=== PATIENT | male | born 1955 | race Two or more races ===

== ENCOUNTER 2017-11-20 14:32 | Emergency (ER) | payer SELFPAY ==
[2017-11-20] MEDS: IBUPROFEN 800 MG TABLET. PO ×2 (15:21)
[2017-11-20 15:31] LABS: INFLUENZA A PATIENT POSITIVE (NEGATIVE); INFLUENZA B PATIENT NEGATIVE (NEGATIVE); OBC FLU VALID
== END 2017-11-20 15:42 | disposition home or self-care (01) ==
LOC: ER 14:32
DX: J09.X2 Influenza due to identified novel influenza A virus with other respiratory manifestations (principal)
CPT/HCPCS: 87804; 87804-59; 99284

== ENCOUNTER 2021-09-27 13:27 | Emergency (ER) | payer MEDICAID ==
[~2021-09-27] VITALS: Ht 167.6 cm; Wt 65.9 kg
[~2021-09-27 13:27] MED LIST: FOLI0.8T21 PO; OSEL75CA PO; Pantoprazole PO; THIA100T22 PO
--- NOTE | 2021-09-27 15:38 | PHYS DOC ---
Past Medical History Past Medical History: Other Additional Past Medical Histor: ETOH ABUSE Past Surgical History: No Surgical History Smoking Status: Never Smoker Alcohol Use: Heavy Drug Use: None General Adult EDM: Chief Complaint: FLU SYMPTOM HPI: HPI: Patient is a 66-year-old male presenting via POV for Covid symptoms. Patient he reports history of alcohol binge abuse but cessation 6 months ago without any o ther known medical diseases presents with typical Covid symptoms. Reports he has had symptoms for past 6 days, was tested 5 days ago with his daughter and both of them tested positive for rapid test that was performed in the local area. Reports he has had rhinorrhea, postnasal drip, nasal congestion and a dry nonproductive cough, he has had ongoing nausea with occasional abdominal cramping. No fever, syncope, chest pain, shortness of breath, productive cough, ripping or tearing sensation in abdomen, hemoptysis or other known blood loss, no urinary symptoms or diarrhea. States she was unvaccinated against COVID-19 pain. He is otherwise been at his baseline health with no known obvious sick contacts or recent travel Review of Systems: Review of Systems: Fourteen body systems of review of systems have been reviewed. See HPI for pertinent positives and negative responses, other wang all other systems are negative, non-pertinent or non-contributory Heart Score: C/O Chest Pain: No HEART Score for Chest Pain: HEART Score for Chest Pain Response (Comments) Value History Moderately Suspicious 1 ECG Nonspecific Repolarizatio 1 Age >45 - < 65 1 Risk Factors 1 or 2 Risk Factors 1 Troponin < Normal Limit 0 Total 4 Risk Factors: Risk Factors: DM, Current or recent (<one month) smoker, HTN, HLP, family history of CAD, obesity. Risk Scores: Score 0 - 3: 2.5% MACE over next 6 weeks - Discharge Home Score 4 - 6: 20.3% MACE over next 6 weeks - Admit for Clinical Observation Score 7 - 10: 72.7% MACE over next 6 weeks - Early Invasive Strategies Allergies: Allergies: Allergies Coded Allergies Type Severity Reaction Last Updated Verified No Known Drug Allergies 04/05/14 No Physical Exam: PE: Constitutional: Well developed, well nourished, no acute distress, non-toxic appearance. HENT: Normocephalic, atraumatic, bilateral external ears normal, oropharynx moist, no oral exudates, nose normal. Eyes: PERRLA, EOMI, conjunctiva normal, no discharge. Neck: Normal range of motion, no tenderness, supple, no stridor. Cardiovascular: Heart rate regular, sinus rhythm, no murmurs rubs or gallops Lungs & Thorax: Bilateral breath sounds clear to auscultation Abdomen: Bowel sounds normal, soft, no tenderness, no masses, no pulsatile masses. Nonsurgical abdomen, no peritoneal signs Skin: Warm, dry, no erythema, no rash. Back: No tenderness, no CVA tenderness. Extremities: No tenderness, no cyanosis, no clubbing, ROM intact, no edema. Neurologic: Alert and oriented X 3, grossly normal motor & sensory function, no focal deficits noted. Psychologic: Affect normal, judgement normal, mood normal. Current Patient Data: Labs: Laboratory Tests Test 09/27/21 15:52 09/27/21 15:57 09/27/21 16:03 White Blood Count 2.9 x10^3/uL Red Blood Count 3.88 x10^6/uL Hemoglobin 9.5 g/dL Hematocrit 29.6 % Mean Corpuscular Volume 76 fL Mean Corpuscular Hemoglobin 25 pg Mean Corpuscular Hemoglobin Concent 32 g/dL Red Cell Distribution Width 16.6 % Platelet Count 73 x10^3/uL Neutrophils (%) (Auto) 64 % Lymphocytes (%) (Auto) 21 % Monocytes (%) (Auto) 12 % Eosinophils (%) (Auto) 3 % Basophils (%) (Auto) 0 % Neutrophils # (Auto) 1.8 x10^3/uL Lymphocytes # (Auto) 0.6 x10^3/uL Monocytes # (Auto) 0.3 x10^3/uL Eosinophils # (Auto) 0.1 x10^3/uL Basophils # (Auto) 0.0 x10^3/uL Sodium Level 137 mmol/L Potassium Level 3.6 mmol/L Chloride Level 102 mmol/L Carbon Dioxide Level 25 mmol/L Anion Gap 10 Blood Urea Nitrogen 7 mg/dL Creatinine 0.7 mg/dL Estimated GFR (Cockcroft-Gault) 113.5 BUN/Creatinine Ratio 10 Glucose Level 89 mg/dL Calcium Level 7.7 mg/dL Total Bilirubin 1.1 mg/dL Aspartate Amino Transf (AST/SGOT) 76 U/L Alanine Aminotransferase (ALT/SGPT) 36 U/L Alkaline Phosphatase 101 U/L Troponin I High Sensitivity 40 ng/L Total Protein 6.4 g/dL Albumin 2.4 g/dL Albumin/Globulin Ratio 0.6 Ethyl Alcohol Level < 10 mg/dL Influenza Type A Antigen Negative Influenza Type B Antigen Positive SARS-CoV-2 Antigen (Rapid) Positive Urine Collection Type Unknown Urine Color Yellow Urine Clarity Clear Urine pH 6.5 Urine Specific [place] 1.020 Urine Protein Negative mg/dL Urine Glucose (UA) 100 mg/dL Urine Ketones (Stick) Trace mg/dL Urine Blood Negative Urine Nitrite Negative Urine Bilirubin Negative Urine Urobilinogen Dipstick 1.0 mg/dL Urine Leukocyte Esterase Negative Urine RBC Occ /HPF Urine WBC Occ /HPF Urine Bacteria Many /HPF Urine Mucus Slight /LPF Urine Opiates Screen Neg Urine Methadone Screen Neg Urine Barbiturates Neg Urine Phencyclidine Screen Neg Urine Amphetamine/Methamphetamine Neg Urine Benzodiazepines Screen Neg Urine Cocaine Screen Neg Urine Cannabinoids Screen Neg Urine Ethyl Alcohol Neg Current Medications Medications (Trade) Dose Ordered Sig/Ele Route PRN Reason Start Time Stop Time Status Last Admin Dose Admin Azithromycin (Zithromax) 500 mg 1X ONCE PO 09/27/21 17:00 09/27/21 17:01 DC Vital Signs: Vital Signs Date Time Temp Pulse Resp B/P (MAP) Pulse Ox O2 Delivery O2 Flow Rate FiO2 09/27/21 15:17 99.7 90 26 120/65 (83) 98 Room Air 99.7 Vital Signs Date Time Temp Pulse Resp B/P (MAP) Pulse Ox O2 Delivery O2 Flow Rate FiO2 09/27/21 15:17 99.7 90 26 120/65 (83) 98 Room Air 99.7 EKG: EKG: EKG ordered and interpreted by myself 1538 hrs. as sinus rhythm at 90 bpm, unremarkable intervals, no axis deviation, T wave inversion noted in lead III otherwise no acute ischemic findings, no STEMI Radiology/Procedures: Radiology/Procedures: EXAM: Chest, single view. HISTORY: Pain. COMPARISON: 02/21/2018 FINDINGS: A frontal view of the chest is obtained. There is bilateral peripheral predominant interstitial and alveolar infiltrate. This is superimposed on chronic interstitial changes. The heart is normal in size. There is no pneumothorax or pleural effusion. IMPRESSION: Bilateral interstitial and alveolar infiltrate. Follow-up to confirm resolution. Electronically signed by: Bina Smith MD (09/27/2021 4:40 PM) [id number] ////////////////////// Course & Med Decision Making: Course & Med Decision Making ABCs unremarkable HPI physical exam comprehensive ER work-up concerning for positive Covid and influenza with chest x-ray findings consistent with Covid pneumonia. Decision made to treat with antibiotics, azithromycin given I disclosed little indication remains for further diagnostic work-up and/or need for hospitalization an otherwise hemodynamically stable patient. During decision made to discharge home with continued self quarantine and supportive care practices and close PCP contact Strict return precautions were discussed with good understanding by patient, all questions and concerns addressed prior to ER departure Nicolas Disclaimer: Nicolas Disclaimer: This electronic medical record was generated, in whole or in part, using a voice recognition dictation system. Departure Departure Impression: Primary Impression: Pneumonia due to COVID-19 virus Additional Impression: Influenza A Disposition: HOME / SELF CARE / HOMELESS Condition: STABLE Referrals: NO PCP (PCP) Patient Instructions: Pneumonia, Adult Scripts Azithromycin (AZITHROMYCIN TABLET) 250 Mg Tablet 250 MG PO DAILY for ANTI-BIOTIC, #4 TAB 0 Refills Prov: KATE COREAS DO 09/27/21 KATE COREAS DO Sep 27, 2021 15:38
--- NOTE | 2021-09-27 16:03 | EKG ---
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
[2021-09-27 16:17] LABS: BILIRUBIN,URINE NEGATIVE (NEG); CLARITY,URINE CLEAR; COLOR,URINE YELLOW; NITRITE,URINE NEGATIVE (NEG); PH,URINE 6.5 (<5.0-8.0); PROTEIN,URINE NEGATIVE (NEG-TRACE)
[2021-09-27 16:18] LABS: BASO % 0 % (0-3); EOS # 0.1 x10^3/uL (0.0-0.7); EOS % 3 % (0-3); HEMATOCRIT 29.6 % (39.0-53.0); HEMOGLOBIN 9.5 g/dL (13.0-17.5); LYMPH # 0.6 x10^3/uL (1.0-4.8); LYMPH % 21 % (24-48); MEAN CORPUSCULAR HEMOGLOBIN 25 pg (25-35); MEAN CORPUSCULAR HGB CONC 32 g/dL (31-37); MEAN CORPUSCULAR VOLUME 76 fL (79-100); MONO # 0.3 x10^3/uL (0.0-1.1); MONO % 12 % (0-9); NEUT # 1.8 x10^3/uL (1.8-7.7); NEUT % 64 % (31-73); PLATELET COUNT 73 x10^3/uL (140-400); RED BLOOD COUNT 3.88 x10^6/uL (4.30-5.70); RED CELL DISTRIBUTION WIDTH 16.6 % (11.5-14.5); WHITE BLOOD COUNT 2.9 x10^3/uL (4.0-11.0)
[2021-09-27 16:29] LABS: BACTERIA,URINE MANY /HPF (0-FEW); RBC,URINE OCC /HPF (0-2); WBC,URINE OCC /HPF (0-4)
[2021-09-27 16:40] LABS: CALCIUM 7.7 mg/dL (8.5-10.1); CREATININE 0.7 mg/dL (0.7-1.3); GFR 113.5; POTASSIUM 3.6 mmol/L (3.5-5.1)
[2021-09-27 16:41] LABS: AMPHETAMINE/METHAMPHETAMINE NEG (NEG); BARBITURATES NEG (NEG); BENZODIAZEPINES NEG (NEG); CANNABINOIDS NEG (NEG); COCAINE NEG (NEG); METHADONE NEG (NEG); OPIATES NEG (NEG); PHENCYCLIDINE NEG (NEG)
--- NOTE | 2021-09-27 16:43 | RAD ---
EXAM: Chest, single view. HISTORY: Pain. COMPARISON: 02/21/2018 FINDINGS: A frontal view of the chest is obtained. There is bilateral peripheral predominant intersti tial and alveolar infiltrate. This is superimposed on chronic interstitial changes. The heart is norm al in size. There is no pneumothorax or pleural effusion. IMPRESSION: Bilateral interstitial and alveolar infiltrate. Follow-up to confirm resolution. Electronically signed by: Bina Smith MD (09/27/2021 4:40 PM) [id number]
[2021-09-27 16:45] LABS: ALBUMIN 2.4 g/dL (3.4-5.0); ALBUMIN/GLOBULIN RATIO 0.6 (1.0-1.7); TOTAL BILIRUBIN 1.1 mg/dL (0.2-1.0); TOTAL PROTEIN 6.4 g/dL (6.4-8.2)
[2021-09-27] MEDS ORDERED: AZITHROMYCIN 250 MG TABLET. PO ONE (17:00)
[2021-09-27] MEDS ORDERED: AZIT250T6 PO (17:05)
[2021-09-27 17:36] VITALS: BP 111/59
[2021-09-27 17:39] LABS: INFLUENZA A PATIENT NEGATIVE (NEGATIVE)
[2021-09-27 17:52] LABS: INFLUENZA B PATIENT POSITIVE (NEGATIVE)
== END 2021-09-27 18:10 | disposition home or self-care (01) ==
LOC: ER 13:27
DX: U07.1 COVID-19 (principal); J12.82 Pneumonia due to coronavirus disease 2019; J10.1 Influenza due to other identified influenza virus with other respiratory manifestations; F10.20 Alcohol dependence, uncomplicated; Y90.0 Blood alcohol level of less than 20 mg/100 ml
CPT/HCPCS: 36415; 71045; 80053; 80307; 81001; 84484; 85025; 87086; 87426; 87804; 93005; 99285; G0480; 87077; 87186